=== PATIENT | male | born 1995 | race Caucasian/White ===

== ENCOUNTER 2020-04-12 15:47 | Emergency (ER) | payer BC, SELFPAY ==
[2020-04-12 16:00] VITALS: BP 148/70; PULSE 77; RESP 16; TEMP 36.6; O2SAT 100
[2020-04-12 16:01] VITALS: BP 148/70; PULSE 77; RESP 16; TEMP 36.6; O2SAT 100
--- NOTE | 2020-04-12 16:14 | ED.HA ---
HPI - Headache General Chief Complaint: Headache Stated Complaint: Headache Source: patient Mode of arrival: ambulatory Limitations: no limitations History of Present Illness HPI Narrative: Patient is a 24-year-old male who presents complaining of headache x4 days. Patient reports facial pain and pressure, left ear discomfort. Patient was tested for Covid and had negative results yesterday. He denies sore throat, denies nausea, vomiting, diarrhea or other complaints. He reports sharp pain behind left eye intermittently. He reports taking Tylenol with moderate relief. MD elicited complaint: headache Related Data Allergies Allergy/AdvReac Type Severity Reaction Status Date / Time No Known Allergies Allergy Verified 04/12/20 16:00 Review of Systems Review of Systems: Narrative: CONSTITUTIONAL: Denies fever, chills, or sweats. EYES: Denies visual changes, redness, or discharge. ENT: Denies rhinorrhea, congestion, sore throat, or otalgia. CARDIOVASCULAR: Denies chest pain, palpitations, or edema. RESPIRATORY: Denies cough or dyspnea. GASTROINTESTINAL: Denies abdominal pain, nausea, vomiting, or diarrhea. GENITOURINARY: Denies dysuria or hematuria. SKIN: Denies rash or itching. MUSCULOSKELETAL: Denies back pain, joint pain, or myalgia. NEUROLOGIC: Reports headache, denies numbness, dizziness, or weakness. PSYCHIATRIC: Denies anxiety or depression. PMFSH Past Medical History Medical History (Updated 04/12/20 @ 16:22 by SUNNI Luna) No significant past medical history Surgical History Surgical History (Updated 04/12/20 @ 16:16 by SUNNI Luna) No significant past surgical history Family History Family History (Updated 04/12/20 @ 16:17 by SUNNI Luna) Other No significant family history Social History Social History (Updated 04/12/20 @ 16:17 by SUNNI Luna) Smoking status: Never smoker Alcohol intake: never Substance use: never Living arrangements: with family Exam Narrative: Exam Narrative: GENERAL: Well-appearing, well-nourished, and in no acute distress. HEAD: Normocephalic, atraumatic. EYES: EOMI. No redness or drainage. Conjunctiva are normal. PE RRL ENT: Mucous membranes pink and moist. Nares clear. No rhinorrhea. TMs normal bilaterally. Throat normal. Uvula midline. NECK: AROM. Supple. No lymphadenopathy. CHEST: No respiratory distress. HEART: Regular rate and rhythm. EXTREMITIES: Normal range of motion. No edema. SKIN: Warm, dry, no rash. NEURO: No focal deficits. Alert and oriented x3. Gait steady. PSYCH: Normal affect. No signs of depression or anxiety. Course Vital Signs Vital signs: Vital Signs Temperature 36.6 C 04/12/20 16:00 Pulse Rate 77 04/12/20 16:00 Respiratory Rate 16 04/12/20 16:00 Blood Pressure 148/70 H 04/12/20 16:00 Pulse Oximetry 100 04/12/20 16:00 Temperature 36.6 C 04/12/20 16:01 Pulse Rate 77 04/12/20 16:01 Respiratory Rate 16 04/12/20 16:01 Blood Pressure 148/70 H 04/12/20 16:01 Pulse Oximetry 100 04/12/20 16:01 Reviewed. Patient has been instructed to follow-up with his PCP regarding his blood pressure. MDM - Headache MDM Narrative Medical decision making narrative: Patient had large amount of cerumen and his left ear, left otitis media noted after cerumen was cleaned. Patient also most likely has sinusitis. Discussed with patient that her blood pressure and other causes of headaches. Patient is aware that if symptoms persist, he has visual disturbances, nausea, problems with balance or other complaints that he is to go immediately to the emergency department for further evaluation and diagnostic testing. Patient is stable for discharge home with outpatient follow-up with his PCP as discussed. Differential Diagnosis Differential diagnosis: Likely migraine, tension headache, headache, sinusitis and other (Otitis media) Critical Care Time Critical Care Time Critical C
== END 2020-04-12 16:32 | disposition home or self-care (01) ==
PROVIDERS: Emergency Provider Nurse Practitioner
DX: H66.002 Acute suppurative otitis media without spontaneous rupture of ear drum, left ear (principal); J01.90 Acute sinusitis, unspecified
CPT/HCPCS: 99213; G0463